=== PATIENT | female | born 1965 | race Two or more races ===

== ENCOUNTER → 2018-12-05 | Emergency (ER) | payer OTHER ==
[~2018-12-05] VITALS: Ht 157.5 cm; Wt 71.7 kg
== END | disposition home or self-care (01) ==
LOC: ER 13:27
DX: M75.51 Bursitis of right shoulder (principal)

== ENCOUNTER 2024-03-01 19:55 | Emergency (ER) | payer OTHER ==
[~2024-03-01] VITALS: Ht 160 cm; Wt 75.7 kg
[2024-03-01] MEDS ORDERED: COZAAR25 MG PO (20:18)
[2024-03-01] MEDS ORDERED: KETOROLAC TROMETHAMINE 60 MG VIAL IM ONE ×2 (20:30→20:36)
[2024-03-01] MEDS ORDERED: KETO10TA2 PO (21:41)
== END 2024-03-01 21:50 | disposition home or self-care (01) ==
LOC: ER 19:57
DX: S89.81XA Other specified injuries of right lower leg, initial encounter (principal); W18.39XA Other fall on same level, initial encounter; Y93.89 Activity, other specified; Y92.59 Other trade areas as the place of occurrence of the external cause; Z88.6 Allergy status to analgesic agent; J45.909 Unspecified asthma, uncomplicated; I10 Essential (primary) hypertension
CPT/HCPCS: 73521; 73551; 73560; 73590; 73610; 96372; 99283; J1885

== ENCOUNTER 2025-01-19 19:10 | Emergency (ER) | payer OTHER ==
[~2025-01-19] VITALS: Ht 160 cm; Wt 71.7 kg
[~2025-01-19 19:10] MED LIST: COZAAR25 MG PO; KETO10TA2 PO
[2025-01-19] MEDS ORDERED: FARXIGA10 MG PO (21:27)
[2025-01-19] MEDS ORDERED: KETOROLAC TROMETHAMINE 15 MG VIAL IM STA (21:36)
[2025-01-19] MEDS ORDERED: ORPHENADRINE CITRATE 30 MG/ML AMPUL IM STA (21:36)
[2025-01-19] MEDS ORDERED: NORFLEX100MG PO (21:43)
[2025-01-19] MEDS ORDERED: DICLOFENAC SODI75 MG PO (21:43)
[2025-01-19] MEDS ORDERED: ORPHENADRINE CITRATE 30 MG/ML AMPUL ONE (21:57)
[2025-01-19] MEDS ORDERED: KETOROLAC TROMETHAMINE 30 MG VIAL ONE (21:57)
== END 2025-01-19 22:26 | disposition home or self-care (01) ==
LOC: ER 20:21
DX: M62.830 Muscle spasm of back (principal); M54.59 Other low back pain; I10 Essential (primary) hypertension; Z88.6 Allergy status to analgesic agent

== ENCOUNTER 2025-03-01 14:33 | Emergency (ER) | payer OTHER ==
[~2025-03-01] VITALS: Ht 157.5 cm; Wt 68.0 kg
[~2025-03-01 14:33] MED LIST changes: +DICLOFENAC SODI75 MG PO; +FARXIGA10 MG PO; +NORFLEX100MG PO
[2025-03-01] MEDS ORDERED: HYDROCHLOROTH12.5 M2 PO (15:39)
[2025-03-01] MEDS ORDERED: SINGULAIR10 MG PO (15:39)
[2025-03-01] MEDS ORDERED: DEXAMETHASONE SODIUM PHOSPHATE 4 MG/ML VIAL ONE (16:58)
[2025-03-01] MEDS ORDERED: KETOROLAC TROMETHAMINE 60 MG VIAL IM ONE ×2 (16:58→17:00)
[2025-03-01] MEDS ORDERED: ORPHENADRINE CITRATE 30 MG/ML AMPUL ONE (16:58)
[2025-03-01] MEDS ORDERED: ORPHENADRINE CITRATE 30 MG/ML AMPUL IM ONE (17:00)
[2025-03-01] MEDS ORDERED: DEXAMETHASONE SODIUM PHOSPHATE 4 MG/ML VIAL IM ONE (17:00)
[2025-03-01] MEDS ORDERED: NORFLEX100MG PO (17:03)
[2025-03-01] MEDS ORDERED: IBUPROFEN800 MG PO (17:03)
== END 2025-03-01 20:48 | disposition home or self-care (01) ==
LOC: ER 14:33
DX: M75.52 Bursitis of left shoulder (principal); Z88.8 Allergy status to other drugs, medicaments and biological substances; J45.909 Unspecified asthma, uncomplicated; I10 Essential (primary) hypertension